=== PATIENT | female | born 1980 | race Caucasian/White ===

== ENCOUNTER 2022-10-24 11:11 | Emergency (ER) | payer BC, SELFPAY ==
[2022-10-24 11:12] VITALS: BP 145/94; PULSE 100; RESP 16; TEMP 36.6; O2SAT 99; BMI 26.2
--- NOTE | 2022-10-24 11:34 | EX.ED.DYSGE1 ---
HPI History of Present Illness Chief Complaint: Abd Pain Informant: patient Narrative Narrative: Patient presents with abdominal and rectal pain. She states she was sitting in her desk this morning when she felt like she did have a bowel movement. She went to the restroom and had severe rectal pain and was not able to pass any stool. She then got diffuse abdominal cramping with sweating and lightheadedness. She reports having intermittent rectal pain for the last year or so but has not been seen by her doctor or evaluated. She is a family history of breast cancer but no known history of colon cancer. She states she was able to have a bowel movement this morning without difficulty. [facility] Medical History Hernia Allergy/AdvReac Type Severity Reaction Status Date / Time No Known Allergies Allergy Verified 10/24/22 11:15 Social History Smoking Status: Current every day smoker tobacco type: cigarettes ROS ROS ED Constitutional Constitutional ED: Denies chills or fever(s) Eyes Eyes: Denies discharge from eye(s) ENT ENT ED: Denies discharge from eye(s), rhinorrhea or sore throat Cardiovascular Cardiovascular: Denies chest pain or palpitations Respiratory/Chest Respiratory/Chest: Denies cough or dyspnea Gastrointestinal Gastrointestinal: Reports abdominal pain and other Details: Rectal pain ; Denies nausea or vomiting Genitourinary Genitourinary ED: Denies dysuria Musculoskeletal Musculoskeletal: Denies back pain or extremity pain Integumentary Denies Abrasions or rash Neurologic Neurologic: Denies headache(s) or weakness Psychiatric Psychiatric: Denies anxiety or depression Endocrine Endocrinology: Denies polydipsia or polyuria Allergic/Immunologic Allergic/Immunologic ED: Denies lip swelling or urticaria EXAM Physical Exam Const Vital Signs: 10/24/22 11:12 10/24/22 12:15 Temperature 97.8 F Temperature Source Temporal Pulse Rate 100 84 Respiratory Rate 16 Blood Pressure 145/94 H 114/83 H Blood Pressure Mean 111 93 Pulse Ox 99 100 Oxygen Delivery Method Room Air Room Air MDM MDM MDM Narrative Medical decision making narrative: IV line established patient given morphine and Zofran along with IV fluids. Labwork obtained to evaluate for leukocytosis, anemia, and electrolyte derangement. Urinalysis obtained to evaluate for infection/hematuria. CT scan of the abdomen pelvis obtained to evaluate for mass, obstruction, diverticulitis. Lab Data Attestation: I reviewed the patient's lab results. Labs: Laboratory Results - last 24 hr 10/24/22 10/24/22 10/24/22 11:31 11:31 11:31 WBC 8.8 RBC 4.32 Hgb 13.0 Hct 40.2 MCV 93.1 MCH 30.1 MCHC 32.3 RDW Std Deviation 42.4 RDW Coeff of Nadia 12.4 Plt Count 274 MPV 10.0 Immature Gran % (Auto) 0.500 Neut % (Auto) 72.6 H Lymph % (Auto) 19.1 [place] % (Auto) 5.8 Eos % (Auto) 1.5 Baso % (Auto) 0.5 Absolute Neuts (auto) 6.4 Absolute Lymphs (auto) 1.69 Nucleated RBC % 0 Sodium 140 Potassium 3.8 Chloride 109 H Carbon Dioxide 24.0 Anion Gap 7 BUN 11 Creatinine 0.78 Estim Creat Clear Calc 80.31 Est GFR (MDRD) Af Amer 104 Est GFR (MDRD) Non-Af 86 BUN/Creatinine Ratio 14.2 Glucose 124 H Calcium 8.8 Total Bilirubin 0.60 Direct Bilirubin 0.13 AST 23 ALT 30 Alkaline Phosphatase 79 Total Protein 7.1 Albumin 3.8 Globulin 3.3 Serum , Qual NEGATIVE Urine Color Urine Clarity Urine pH Ur Specific [place] Urine Protein Urine Glucose (UA) Urine Ketones Urine Occult Blood Urine Nitrite Urine Bilirubin Urine Urobilinogen Ur Leukocyte Esterase Urine RBC Urine WBC Ur Squamous Epith Cells Urine Bacteria Urine Mucus 10/24/22 12:24 WBC RBC Hgb Hct MCV MCH MCHC RDW Std Deviation RDW Coeff of Nadia Plt Count MPV Immature Gran % (Auto) Neut % (Auto) Lymph % (Auto) [place] % (Auto) Eos % (Auto) Baso % (Auto) Absolute Neuts (auto) Absolute Lymphs (auto) Nucleated RBC % Sodium Potassium Chloride Carbon Dioxide Anion Gap BUN Creatinine Estim Creat Clear Calc Est GFR (MDRD) Af Amer Est GFR (MDRD) Non-Af BUN/Creatinine Ratio Glucose Calcium Total Bilirubin Direct Bilirubin AST ALT Alkaline Phosphatase Total Protein Albumin Globulin Serum , Qual Urine Color Yellow Urine Clarity Clear Urine pH 8.0 Ur Specific [place] 1.015 Urine Protein Negative Urine Glucose (UA) Normal Urine Ketones Negative Urine Occult Blood Negative Urine Nitrite Negative Urine Bilirubin Negative Urine Urobilinogen Normal Ur Leukocyte Esterase 25 H Urine RBC 0 SEEN Urine WBC 0 SEEN Ur Squamous Epith Cells 0-5 SEEN Urine Bacteria 0 SEEN Urine Mucus 0 SEEN Radiography Diagnostic Testing: Clinical Impression(s) from Imaging Studies Abdomen/Pelvis CT 10/24/22 13:42 IMPRESSION: Findings suggestive of an hemangioma of the inferior aspect of the right lobe of the liver. Sigmoid diverticulosis without radiographic evidence of diverticulitis. Electronically Signed: Christian Ferrari MD at 14:06 EDT , Treatment and Re-Evaluation :: On repeat evaluation patient resting comfortably. CBC reveals normal white count and hemoglobin. Chemistry studies unremarkable. LFTs normal. test negative. Urinalysis reveals no evidence of infection or hematuria. CT scan of the abdomen and pelvis with contrast reveals evidence of a hemangioma in the inferior aspect of the right lobe of the liver as well as sigmoid diverticulosis without evidence of diverticulitis. No masses or rectal inflammation are noted. Test results are discussed with patient and family at bedside. I believe she likely had rectal spasm that triggered a vasovagal episode today. Patient does report intermittent spasms in her rectum. She was able to have a bowel movement this morning without any pain. I did recommend follow-up with GI for colonoscopy. Return instructions were provided. Patient is comfortable with the plan. Discharge Plan Triage Chief Complaint: Abd Pain ED Provider: Tabatha Rodriguez Dx/Rx/DC Orders Clinical Impression: Vasovagal near syncope, Rectal pain Instructions: ED Abdominal Pain Unkn Cause Fem, ED Near-Fainting- Vagal Reaction Primary Care Provider: Jonatan Melendrez Referrals: Jonatan Melendrez MD [Primary Care Provider] - Friend,DO Brock [Med Staff - Active Staff] - As Needed Disposition Disposition: Home, Self Care
[2022-10-24] MEDS: Ondansetron 4 MG/2 ML Vial IV (11:42)
[2022-10-24] MEDS: 0.9% Normal Saline 1,000 ML 150 ML IV (11:42)
[2022-10-24] MEDS: Morphine 4 MG/ML Syringe IV (11:43)
[2022-10-24 11:48] LABS: Absolute Lymphocyte Count 1.69 X10^3/uL (0.83-4.51); Absolute Neutrophil Count 6.4 X10^3/uL (2.0-7.7); Basophil# 0.04 X10^3/uL; Basophil% 0.5 % (0-1); Eosinophil# 0.13 X10^3/uL; Eosinophils% 1.5 % (0-5); Hematocrit 40.2 % (37-47); Lymphocyte # 1.69 X10^3/ul (0.83-4.51); Lymphocyte % 19.1 % (19-41); Mean Corp Hgb Conc 32.3 g/dL (32-36); Mean Corpuscular Hgb 30.1 pg (27.0-32.0); Mean Corpuscular Volume 93.1 fL (81-99); Monocyte# 0.51 X10^3/uL; Monocyte% 5.8 % (0-10); NRBC Flagged by Analyzer 0 % (0-5); Neutrophil # 6.42 X10^3/uL (2.7-7.7); Neutrophil % 72.6 % (47-70); Platelet Count 274 K/mm3 (150-450); RBC Distribution Width CV 12.4 % (11.6-14.6); RBC Distribution Width SD 42.4 fl (35.1-43.9); Red Blood Count 4.32 M/mm3 (4.2-5.4); White Blood Count 8.8 K/mm3 (4.4-11.0)
[2022-10-24 11:56] LABS: Internal QC Validated? YES +Cl - CLEAR BKGD; Pregnancy, Serum, hCG Quali. NEGATIVE Negative
[2022-10-24 12:15] VITALS: BP 114/83; PULSE 84; O2SAT 100
[2022-10-24 12:15] LABS: AST(SGOT) 23 U/L (15-37); Alanine Aminotransfer ALT/SGPT 30 U/L (13-56); Albumin, Serum 3.8 g/dL (3.2-5.0); Alkaline Phosphatase 79 U/L (45-117); Anion Gap 7 (5-15); BUN 11 mg/dL (7-18); BUN/Creat Ratio 14.2 RATIO (10-20); Bilirubin, Direct 0.13 mg/dL (0.00-0.30); Calcium,Total 8.8 mg/dL (8.5-10.1); Chloride 109 mmol/L (98-107); Creatinine, Serum 0.78 mg/dL (0.55-1.02); EST Glomerular Filtration Rate 86 mL/min (>60); Est Glom Filt Rate - Afr Amer 104 mL/min (>60); Estimated Creatinine Clearance 80.31 ml/min; Globulin 3.3 g/dL (2.2-4.2); Glucose 124 mg/dL (74-106); Potassium 3.8 mmol/L (3.5-5.1); Protein, Total 7.1 g/dL (6.4-8.2); Sodium Level 140 mmol/L (136-145)
[2022-10-24 12:31] LABS: Bacteria 0 SEEN /hpf (None Seen); Mucous, Urine 0 SEEN /hpf (<or=2+); Red Blood Cells-Urine 0 SEEN /hpf (0-5); White Blood Cells 0 SEEN /hpf (0-5)
[2022-10-24 12:37] LABS: Color, Urine Yellow (Yellow); Glucose, Dipstick Normal (Normal); Ketone-Dipstick Negative (Negative); Leukocyte Esterase-Dipstick 25 /ul (Negative); Nitrite-Dipstick Negative (Negative); Occult Blood-Urine Negative /ul (Negative); Protein-Dipstick Negative (Negative); Specific Gravity, Urine 1.015 (1.002-1.030); Urine Bilirubin Dipstick Negative (Negative); Urine Clarity Clear (Clear); Urine Urobilinogen Normal (Normal)
[2022-10-24 12:48] LABS: Squamous Epithelial Cells - UA 0-5 SEEN /hpf (5-10)
--- NOTE | 2022-10-24 13:42 | CT_ITS ---
STUDY: CT ABDOMEN AND PELVIS WITH CONTRAST REASON FOR EXAM: Female, 42 years old. Abd/rectal pain -- IV PO Contrast RADIATION DOSAGE (If Supplied By Facility): CTDIvol = ( 7.74 ) mGy, DLP = ( 723.15 ) mGycm TECHNIQUE: Transaxial images were obtained from the dome of the diaphragm to the symphysis pubis with oral contrast. Oral and amp; IV Gastrografin and amp; 100mL Isovue-300 was administered. Sagittal and coronal images were reconstructed. Individualized dose optimization techniques were used for this CT. COMPARISON: None. FINDINGS: The visualized lung bases are unremarkable. The visualized portions of the heart are within normal limits. There is a 2.5 cm x 2 cm hypodense nodular density in the inferior aspect of the right lobe of the liver. On delayed images, this becomes less hypodense and most likely represents an hemangioma. Normal gallbladder and extrahepatic biliary system. Normal spleen. Normal pancreas. Normal bilateral adrenal glands. Normal right kidney. 1.6 m cyst in the upper medial aspect of the left kidney. There is a small hiatal hernia. Normal small intestine. There are multiple colonic diverticula consistent with diverticulosis. The appendix is visualized and appears normal. Normal abdominal aorta. Normal inferior vena cava. Normal retroperitoneum. Normal urinary bladder. Follicles are seen in the right ovary. Normal abdominal wall. Normal osseous structures. CT/Abdomen/Pelvis WITH Contrast IMPRESSION: Findings suggestive of an hemangioma of the inferior aspect of the right lobe of the liver. Sigmoid diverticulosis without radiographic evidence of diverticulitis. Electronically Signed: Christian Ferrari MD at 14:06 EDT ,
== END 2022-10-24 14:56 | disposition home or self-care (01) ==
PROVIDERS: Emergency Provider Emergency Medicine; PCP Family Medicine; Visit Provider Emergency Medicine
DX: R55 Syncope and collapse (principal); K62.89 Other specified diseases of anus and rectum; R10.84 Generalized abdominal pain; F17.210 Nicotine dependence, cigarettes, uncomplicated
CPT/HCPCS: 74177; 80048; 80076; 81001; 84703; 85025; 96361; 96374; 96375; 99285; J7030; Q9967; A4216; J2405